=== PATIENT | female | born 1960 | race Caucasian/White ===

== ENCOUNTER 2022-04-04 00:14 | Day surgery (SDC) | payer MEDICARE, SELFPAY ==
[2022-03-28 10:58] VITALS: BMI 28.1
--- NOTE | 2022-03-28 11:10 | PC.NURSE ---
Report to the Outpatient Waiting Room, entrance under the green pavilion located off [facility], at time 0600 on date 04/04/22. OR Time: 0730. - You and your visitor will be asked a series of questions to screen for COVID 19 for your protection. - Only one visitor is allowed at this time. - The patient visitor is requested to leave or wait in car when not with patient. - A mask is required within the hospital. Patients may have clear liquids (water, carbonated beverages, clear teas, apple juice) until 3 hours prior to surgery with a maximum of 20 ounces. - No food from midnight until time of surgery Take the following medications with a SIP of water the morning of surgery: GABAPENTIN, DULOXETINE Medications to discontinue per physician: VITAMINS/SUPPLEMENTS Date to take last dose: 03/31/22 PT HAS ALREADY STOPPED ASPIRIN Please no make-up, nail moldovan, hairspray, perfume, deodorant, or body powder the day of surgery. No jewelry (including any body piercings) or valuables the day of surgery, leave them at home. Please take a shower or bath the night before, or the morning of, surgery with an antibacterial soap. Wear comfortable, loose fitting clothing. - Jewelry must be removed prior to entering the operating room. Rings and piercings that are not removed may be cut off. - The hospital will not accept responsibility for valuables. - Please leave all valuables, including medications, at home the day of surgery. If you are going home after surgery, a licensed newspaper delivery driver must drive you home. - NO public transportation without another adult. - We recommend that an adult stay with you for 24 hours following discharge. - We also recommend that you do not drive, make important decision, drink alcoholic beverages, or take any drugs that were not prescribed by your health care provider for at least 24 hours after your discharge time. Follow any additional instructions given to you from your surgeon. If you or anyone in your household have experienced Covid symptoms in the past week, please notify your surgeon or the nurse liaison at the phone number below for possible testing. Telephone instructions given to PT - LENNY MARISOL and asked if any additional questions and then verbalized understanding. Patient advised to call surgeon office or pre surgery nurse liaison [phone] if any additional questions.
--- NOTE | 2022-04-03 15:05 | P.PNAN_ITS ---
Anes - Initial Pre Proc Eval Procedure: Operation Date: 04/04/22 07:30 Proposed Procedures p Right T10- 11 Thoracic Foraminotomy - Tu Steward MD Date/Time: 04/03/22 15:05 Surgeon: Tu Steward MD Pre Op Diagnosis: Thoracic Neuroforaminal Stenosis Patient Data Age: 61 Gender: F Height: 1.73 m Weight: 83.91 kg Allergies Allergy/AdvReac Type Severity Reaction Status Date / Time codeine Allergy Hallucinati Verified 03/28/22 10:53 ng prednisone Allergy Insomnia Verified 03/28/22 10:53 baclofen AdvReac Gastrointestinal Verified 03/28/22 10:53 Upset Home Medications Medication Instructions Recorded Confirmed Type acetaminophen 500 mg tablet 1,000 mg PO TID 03/28/22 03/28/22 History (Tylenol Extra Strength) aspirin 81 mg chewable tablet 81 mg PO HS 03/28/22 03/28/22 History duloxetine 30 mg capsule,delayed 1 cap PO TID 03/28/22 03/28/22 History release gabapentin 300 mg capsule 2 cap PO BID 03/28/22 03/28/22 History gabapentin 400 mg capsule 2 cap PO HS 03/28/22 03/28/22 History lisinopril 20 0.5 tablet PO DAILY 03/28/22 03/28/22 History mg-hydrochlorothiazide 12.5 mg tablet montelukast 10 mg tablet 1 tablet PO DAILY 03/28/22 03/28/22 History omeprazole 20 mg capsule,delayed 1 cap PO DAILY 03/28/22 03/28/22 History release vitamin B complex 1 tablet PO DAILY 03/28/22 03/28/22 History vitamin E 268 mg (400 unit) capsule 268 mg PO DAILY 03/28/22 03/28/22 History Patient hx anesthesia problems: none Family hx anesthesia problems: none Results Review: All pre-operative results and documents have been reviewed as part of the pre- operative evaluation. [facility] Past Medical History Medical History (Updated 04/03/22 @ 15:06 by David Cali MD) Back pain HTN (hypertension) KLEBER on CPAP Osteoarthritis Social History Social History Smoking status: Never smoker Alcohol intake: never Substance use: never Substance use type: does not use Living arrangements: with family Spiritual care concerns: No Anes - Eval Final PreProcedure Day of Procedure 04/03/22 15:05 Patient weight: overweight Heart: regular rate and rhythm Lungs: clear to auscultation and normal air movement Airway: Mallampati scale class II Neurological: alert and oriented Last oral intake: >/= 8 hours ASA classification: III Emergent: no Anesthetic plan: proceed Anesthesia type and monitoring: general ETT Results Review: All pre-operative results and documents have been reviewed as part of the pre- operative evaluation. Informed Consent: The patient's anesthetic plan and its attendant risks and benefits were discussed with the patient/family/POA. Questions were solicited and answers provided to the satisfaction of the patient/family/POA.
[2022-04-04] VITALS (20 sets, daily range): BP systolic 115–151; BP diastolic 54–86; PULSE 63–82; RESP 12–18; TEMP 36.2–36.8; O2SAT 93–100
--- NOTE | ~2022-04-04 | XR_ITS ---
EXAMINATION: XR fluoroscopy no charge DATE: 04/04/2022 09:00 INDICATION: Thoracic foraminotomy TECHNIQUE: 2 frontal fluoroscopic images of the lower thoracic spine were obtained during procedure p erformed by Dr. Steward. Radiologist was not present for the imaging or procedure. The amount of flu oroscopy time used during this procedure was 0.2 minutes. COMPARISON: None. FINDINGS: Images demonstrate a surgical wound project over the lower thoracic spine. Spinal stimulator leads ar e seen projecting over the central canal with distal tips at the level of the mid T9 vertebral body. IMPRESSION: 1. Fluoroscopy utilized during pain management procedure at the lower thoracic spine. See procedure n ote for further detail. Reviewed, dictated and finalized at location A. IMPRESSION: 1. Fluoroscopy utilized during pain management procedure at the lower thoracic spine. See procedure note for further detail.
[2022-04-04] MEDS: LACTATED RINGERS 1,000 ML 30 ML IV CONT ×2 (06:30→09:11)
--- NOTE | 2022-04-04 07:39 | PM.IMHP ---
H&P: HPI History of Present Illness Date/Time: 04/04/22 07:39 Chief Complaint: Back and flank pain, myelopathy Narrative: Elodia is a 61-year-old female with back and flank pain related foraminal stenosis at T10-11 who presents for decompression from a posterior approach. Her spinal canal also be decompressed. She is not changed since we last saw her. She is not having new bowel or bladder difficulty. She does not have specific muscle weakness. She is not having dermatomal numbness. Review of Systems Review of Systems: Patient denies shortness of breath, cough, fever, chills, nausea, vomiting, weight loss, weight gain, urinary or bowel disturbance, chest pain. She has back and flank pain as above. She is otherwise negative on 12 systems. [facility] Past Medical History Medical History Back pain HTN (hypertension) KLEBER on CPAP Osteoarthritis Social History Social History Smoking status: Never smoker Alcohol intake: never Substance use: never Substance use type: does not use Living arrangements: with family Spiritual care concerns: No Meds Home Medications and Allergies Home Medications Medication Instructions Recorded Confirmed Type acetaminophen 500 mg tablet 1,000 mg PO TID 03/28/22 03/28/22 History (Tylenol Extra Strength) aspirin 81 mg chewable tablet 81 mg PO HS 03/28/22 03/28/22 History duloxetine 30 mg capsule,delayed 1 cap PO TID 03/28/22 04/04/22 History release gabapentin 300 mg capsule 2 cap PO BID 03/28/22 04/04/22 History gabapentin 400 mg capsule 2 cap PO HS 03/28/22 03/28/22 History lisinopril 20 0.5 tablet PO DAILY 03/28/22 03/28/22 History mg-hydrochlorothiazide 12.5 mg tablet montelukast 10 mg tablet 1 tablet PO DAILY 03/28/22 03/28/22 History omeprazole 20 mg capsule,delayed 1 cap PO DAILY 03/28/22 03/28/22 History release vitamin B complex 1 tablet PO DAILY 03/28/22 03/28/22 History vitamin E 268 mg (400 unit) capsule 268 mg PO DAILY 03/28/22 03/28/22 History Allergies Allergy/AdvReac Type Severity Reaction Status Date / Time baclofen AdvReac Gastrointestinal Verified 04/04/22 07:27 Upset codeine AdvReac Hallucinati Verified 04/04/22 07:27 ng prednisone AdvReac Insomnia Verified 04/04/22 07:27 Vital Signs Vital Signs - 24 hr 04/04/22 07:00 Temperature 97.7 F Pulse Rate 75 Respiratory Rate 16 Blood Pressure 151/75 H Pulse Oximetry 98 Oxygen Delivery Room Air Exam Neuro: Other: The patient is a normally developed is a normal-appearing female supine in hospital bed in no acute distress. She is awake, alert, oriented x3 with good fund of knowledge, recall of events and fluent speech. Her face is symmetrical, her tongue is midline, her pupils are equal and reactive to light, her extraocular movements are intact. She has no upper extremity drift, dysmetria or dyspraxia. Strength is normal in the bilateral upper and lower extremities to direct confrontation. Sensation is intact to light touch throughout the upper extremities. Assessment and Plan Assessment and plan (1) Foraminal stenosis of thoracic region: Code(s): M48.04 - Spinal stenosis, thoracic region Status: Acute (2) Thoracic spinal stenosis: Code(s): M48.04 - Spinal stenosis, thoracic region Status: Acute Plan Elodia is a 61-year-old female who presents for T10-11 laminectomy and foraminotomy. I described to her again that operation, its risks, potential benefits, the operative and postoperative course in detail and answered all her questions personally. She indicates understanding and elects to proceed with the operation.
--- NOTE | 2022-04-04 07:43 | WPDHPUPDATE1 ---
History and Physical Update Update Date/Time: 04/04/22 07:43 History and Physical has been reviewed, including an updated exam of the patient. There are NO changes in the patient's condition. Risks, benefits, and alternatives have been discussed and questions answered. Patient agrees to proceed with procedure.
[2022-04-04] MEDS: ceFAZolin 2 GM/D5W 50 ML 2 GM/50 ML BAG IVPB (07:48)
[2022-04-04] MEDS: LIDO 1%/EPINEPHRINE/PF 1:200,000 30 ML VIAL 50 ML XX (08:21)
--- NOTE | 2022-04-04 09:02 | W.PM.PROC2 ---
Procedure Note - Detailed Date of Procedure 04/04/22 Pre-op Diagnosis Thoracic Neuroforaminal Stenosis Post-op Diagnosis Same Procedure Performed Right T10-11 foraminotomy Surgeon Tu Steward MD Systems Analyst Developer [employer] Anesthesia General Indications Elodia is a 61-year-old female with right flank pain related to stenosis in the foramen at T10-11 who presents Findings Foraminal stenosis on the right at T10-11 Description of Procedure The patient was brought to the operating room in the supine position, was sedated, intubated and placed under general anesthesia in routine fashion. She was then turned into the prone position on a Navarro frame. The area of operation on her back was examined, marked for incision, prepped and draped in routine sterile fashion. A preoperative AP x-ray was obtained to determine the 6 placement of the incision. The incision was based on the T10 pedicles. This area was injected with 0.5% lidocaine with [id number] epinephrine. Intravenous antibiotics were given prior to incision. Incision was made with a 10 blade scalpel down to the thoracic fascia. A subperiosteal dissection of the muscle soft tissue weight and spinous process and lamina on the left at T10-11 was performed with a subperiosteal elevator and Bovie cautery. A verifying x-rays obtained to verify the level of operation. The T10 kacy lamina was removed using a Midas Aquilino drill. The yellow ligament was written lifted and removed piecemeal using Kerrison punches. The T10 pedicle was identified. A Midas Aquilino drill was used to perform a limited bony foraminotomy. The foraminotomy was completed using Kerrison punches and curved curette. The exiting nerve root was identified. Significant compression was noted on the nerve and was relieved by these means. These maneuvers were performed until a nerve hook could be placed out the foramen to confirm lack of compression. The wound was then copiously irrigated with bacitracin irrigation all bleeding stopped with bipolar cautery and Surgiflo. The wound was then closed in layered fashion with 2-0 Vicryl interrupted sutures in the thoracic fascia and Kelton's layer. 3-0 Vicryl buried interrupted sutures were placed in the dermis and the skin was closed with running 4 Monocryl subcuticular stitch and dressed with benzoin, Steri-Strips and a Telfa and Tegaderm dressing. The patient was allowed to wake up in the operating room and was taken to the recovery room in stable condition. There were no immediate complications of this operation. All counts were reported correct at the end of the case. Blood loss was 10 cc. The patient is neurologically at her baseline postoperatively. Implants None Estimated Blood Loss 10 IV Fluids 1,000 Drains No Complications None Disposition PACU
--- NOTE | 2022-04-04 10:08 | SUR.PHASEI ---
pt meets criteria for discharge to floor but at this time a bed is unavailable and pt will remain on hold in PACU.
[2022-04-04] MEDS: fentaNYL CITRATE INJ (*CRX) 100 MCG/2 ML VIAL 25 MCG IV PUSH (10:20)
[2022-04-04] MEDS: oxyCODONE HCL (*CRX) 5 MG TAB IR PO (12:08)
--- NOTE | 2022-04-04 12:54 | ADMGEN ---
This patient, Elodia Monte, was admitted to 2 Medical Room 251-. Patient/family oriented to hospital policies and general routines including ID bracelet, bed and alarms, visiting hours, pain management, procedures, bathroom and other care routines, personal items, smoking policy, room service/diet, and visiting hours. Information on how to activate the Rapid Response Team has been discussed. Patient/Family are encouraged to report perceived risks to care and to ask questions if they do not understand what they are told or what they should do.
[2022-04-04] MEDS: CYCLOBENZAPRINE HCL 10 MG TABLET PO (12:57)
[2022-04-04] MEDS: HYDROcodone/acetaminophen (*CRX) 10-325 MG TABLET 1 TAB PO ×3 (13:15→20:27)
[2022-04-04] MEDS: ACETAMINOPHEN 500 MG TABLET 1000 MG PO (16:56)
[2022-04-04] MEDS: DULoxetine HCL 30 MG CAPSULE.DR PO (16:56)
[2022-04-04] MEDS: GABAPENTIN 300 MG CAPSULE 600 MG PO (17:49)
[2022-04-04] MEDS: GABAPENTIN 400 MG CAPSULE 800 MG PO (20:24)
[2022-04-04] MEDS: DOCUSATE SODIUM 100 MG CAPSULE PO (20:24)
[2022-04-05] VITALS: BP 136/65; PULSE 73; RESP 20; TEMP 36.8; O2SAT 93
[2022-04-05 02:25] VITALS: PULSE 69; O2SAT 95
[2022-04-05 04:00] VITALS: BP 111/54; PULSE 72; RESP 20; TEMP 36.6; O2SAT 94
[2022-04-05] MEDS: hydroCHLOROthiazide 6.25 MG TABLET PO (08:01)
[2022-04-05] MEDS: MONTELUKAST SODIUM 10 MG TABLET PO (08:01)
[2022-04-05] MEDS: GABAPENTIN 300 MG CAPSULE 600 MG PO ×2 (08:01→17:09)
[2022-04-05] MEDS: PANTOPRAZOLE 40 MG TABLET PO (08:01)
[2022-04-05] MEDS: DULoxetine HCL 30 MG CAPSULE.DR PO ×3 (08:01→17:09)
[2022-04-05] MEDS: DOCUSATE SODIUM 100 MG CAPSULE PO (08:01)
[2022-04-05] MEDS: lisinopriL 10 MG TABLET PO (08:01)
[2022-04-05] MEDS: VITAMIN B COMPLEX CAPSULE 1 CAP PO (08:02)
[2022-04-05] MEDS: VITAMIN E 400 UNIT CAPSULE PO (08:02)
[2022-04-05] MEDS: HYDROcodone/acetaminophen (*CRX) 10-325 MG TABLET 1 TAB PO (08:02)
[2022-04-05 10:15] VITALS: BP 129/57; PULSE 74; RESP 18; TEMP 36.6; O2SAT 99
--- NOTE | 2022-04-05 11:37 | WPDANESPN ---
Anes - Prog Note Post-Op Date/Time: 04/05/22 11:37 Vital Signs: Last Vital Signs Temp 36.6 C 04/05/22 10:15 Pulse 74 04/05/22 10:15 Resp 18 04/05/22 10:15 BP 129/57 L 04/05/22 10:15 Pulse Ox 99 04/05/22 10:15 O2 Del Method Room Air 04/05/22 08:05 O2 Flow Rate 2 04/04/22 11:30 Pain Score (VAS): 0 I/O: Intake & Output 04/04/22 04/05/22 04/05/22 23:59 07:59 15:59 Intake Total 790 550 772 Output Total 972 193 9434 Balance 77 -91 -405 Patient Feedback: Patient satisfied with anesthetic care.
[2022-04-05] MEDS: CYCLOBENZAPRINE HCL 10 MG TABLET PO (12:06)
[2022-04-05] MEDS: ACETAMINOPHEN 500 MG TABLET 1000 MG PO ×2 (12:06→17:09)
[2022-04-05 15:05] VITALS: BP 135/63; PULSE 69; RESP 18; TEMP 36.9; O2SAT 99
--- NOTE | 2022-04-05 17:02 | WPDPN ---
Progress Note: A&P Assessment and Plan (1) Thoracic spinal stenosis: Code(s): M48.04 - Spinal stenosis, thoracic region Status: Acute Assessment and Plan: The patient is doing well postoperative day 1. She will be discharged home this evening. We discussed discharge instructions and discharge medications. She will follow up with Dr. cruz in approximately 4-6 weeks. She will have Keldron to take on an as-needed basis. Subjective Date/time seen: 04/05/22 17:02 Interval history: The patient is doing well postop day 1 from her thoracic foraminotomy. She has some incisional pain. She is unable to tell me whether her back and legs feel better now than before surgery. She has been ambulating, voiding, and tolerating a regular diet. She would like to be discharged home. Exam Narrative: Her bandage is clean and dry. She has good strength and sensation in her lower extremities. Objective Data Vital Signs Vital Signs: Vital Signs - 24 hr 04/04/22 20:03 04/04/22 23:39 04/05/22 00:00 Temperature 98 F 98.2 F Pulse Rate 67 71 73 Respiratory Rate 14 20 Blood Pressure 116/59 L 136/65 Pulse Oximetry 93 94 93 Oxygen Delivery CPAP 04/04/22 20:00 04/05/22 02:25 04/05/22 04:00 Temperature 98 F Pulse Rate 69 72 Respiratory Rate 20 Blood Pressure 111/54 L Pulse Oximetry 95 94 Oxygen Delivery Room Air CPAP 04/05/22 10:15 04/05/22 08:05 04/05/22 15:05 Temperature 97.8 F 98.4 F Pulse Rate 74 69 Respiratory Rate 18 18 Blood Pressure 129/57 L 135/63 Pulse Oximetry 99 99 Oxygen Delivery Room Air Intake/Output Intake/Output: Intake & Output 04/02/22 04/03/22 04/04/22 04/05/22 23:59 23:59 23:59 23:59 Intake Total 2690 1562 Output Total 1200 1600 Balance 1490 -38 Meds/Results Medications: Active Medications Generic Name Dose Route Start Last Admin Trade Name Freq PRN Reason Stop Dose Admin Acetaminophen 1,000 mg 04/04/22 17:00 04/05/22 12:06 Acetaminophen 500 Mg Tablet PO 1,000 mg TID SANDI Administration Hydrocodone Bitart/Acetaminophen 1 tab 04/04/22 12:22 Hydrocodone/Acetaminophen (*Crx) 5-325 Mg Tablet PO Q4H PRN Mild Pain (1-3) Hydrocodone Bitart/Acetaminophen 1 tab 04/04/22 12:22 04/05/22 08:02 Hydrocodone/Acetaminophen (*Crx) 10-325 Mg Tablet PO 1 tab Q4H PRN Administration Moderate Pain (4-6) Al Hydrox/Mg Hydrox/Simethicone 20 ml 04/04/22 12:22 Mag Hydrox/Al Hydrox/Simeth 30 Ml Udc PO Q4H PRN Indigestion/Heartburn Bisacodyl 10 mg 04/04/22 12:22 Bisacodyl 10 Mg Suppository RECTAL DAILY PRN Constipation Cyclobenzaprine HCl 10 mg 04/04/22 12:22 04/05/22 12:06 Cyclobenzaprine Hcl 10 Mg Tablet PO 10 mg TID PRN Administration Muscle Spasms Docusate Sodium 100 mg 04/04/22 21:00 04/05/22 08:01 Docusate Sodium 100 Mg Capsule PO 100 mg Q12HR SANDI Administration Duloxetine HCl 30 mg 04/04/22 17:00 04/05/22 12:06 Duloxetine Hcl 30 Mg Capsule.Dr PO 30 mg TID SANDI Administration Gabapentin 600 mg 04/04/22 17:00 04/05/22 08:01 Gabapentin 300 Mg Capsule PO 600 mg BID SANDI Administration Gabapentin 800 mg 04/04/22 21:00 04/04/22 20:24 Gabapentin 400 Mg Capsule PO 800 mg HS SANDI Administration Hydrochlorothiazide 6.25 mg 04/05/22 09:00 04/05/22 08:01 Hydrochlorothiazide 6.25 Mg Tablet PO 6.25 mg QAM SANDI Administration Lisinopril 10 mg 04/05/22 09:00 04/05/22 08:01 Lisinopril 10 Mg Tablet PO 10 mg QAM SANDI Administration Montelukast Sodium 10 mg 04/05/22 09:00 04/05/22 08:01 Montelukast Sodium 10 Mg Tablet PO 10 mg DAILY SANDI Administration Morphine Sulfate 2 mg 04/04/22 12:22 Morphine Sulfate (*Crx) 2 Mg/Ml Inj IV PUSH Q2H PRN Pain Rated 7-10 Ondansetron HCl 4 mg 04/04/22 12:22 Ondansetron Inj 4 Mg/2 Ml Vial IV PUSH Q8H PRN Nausea And Vomiting Pantopra
== END 2022-04-05 18:11 | disposition home or self-care (01) ==
LOC: ANHSURGERY 09:15 → ANH2MED 12:44
PROVIDERS: Visit Provider Neurological Surgery
PROC: (CPT 63005; principal; 2022-04-04 07:30)
DX: M48.04 Spinal stenosis, thoracic region (principal); I10 Essential (primary) hypertension; G47.33 Obstructive sleep apnea (adult) (pediatric); M19.90 Unspecified osteoarthritis, unspecified site; Z79.82 Long term (current) use of aspirin
CPT/HCPCS: 63046; 36415; 86850; 86900; 86901; 99199; A9270; J0690; J1100; J1170; J2250; J2405; J2704; J3010; J7120

== ENCOUNTER 2022-08-17 00:54 | Day surgery (SDC) | payer MEDICARE, SELFPAY ==
[2022-08-04 10:00] VITALS: BMI 28.5
--- NOTE | 2022-08-04 10:01 | PC.NURSE ---
Addendum entered by Shannan Garcia RN 08/16/22 14:02: PT TO ARRIVE AT 0900 ON 08/17 FOR SURGERY AT 1100. Original Note: Report to the Outpatient Waiting Room, entrance under the green pavilion located off [facility], at time 0600 on date 08/08/22. Planned Procedure Time: 0730. Time changes happen often and if your time is changed the preop area will call you the afternoon before. - You and your visitor will be asked to self-screen and do not enter if you have any COVID symptoms. - Only one visitor is requested with a max of two and NO children visitors are allowed at this time. - The patient visitor may be requested to leave or wait in car when not with patient due to distancing restrictions. - A mask is optional within the hospital. Patients may have clear liquids (water, carbonated beverages, clear teas, apple juice) until 3 hours prior to surgery with a maximum of 20 ounces. - No food from midnight until time of surgery Take the following medications with a SIP of water the morning of surgery: TYLENOL, DULOXETINE, GABAPENTIN Medications to discontinue per physician: ASPIRIN, VITAMINS Date to take last dose: PT STOPPED ON 07/28 Please no make-up, nail nepali, hairspray, perfume, deodorant, or body powder the day of surgery. No jewelry (including any body piercings) or valuables the day of surgery, leave them at home. Please take a shower or bath the night before, or the morning of, surgery with an antibacterial soap. Wear comfortable, loose fitting clothing. - Jewelry must be removed prior to entering the operating room. Rings and piercings that are not removed may be cut off. - The hospital will not accept responsibility for valuables. - Please leave all valuables, including medications, at home the day of surgery. If you are going home after surgery, a licensed laundry route driver must drive you home. - NO public transportation without another adult if you receive anesthesia. - We recommend that an adult stay with you for 24 hours following discharge. - We also recommend that you do not drive, make important decision, drink alcoholic beverages, or take any drugs that were not prescribed by your health care provider for at least 24 hours after your discharge time. Follow any additional instructions given to you from your surgeon. If you or anyone in your household have experienced Covid symptoms in the past week, please notify your surgeon or the nurse liaison at the phone number below for possible testing. Telephone instructions given to PT - LENNY DAMON and asked if any additional questions and then verbalized understanding. Patient advised to call surgeon office or pre surgery nurse liaison [phone] if any additional questions.
--- NOTE | 2022-08-07 12:55 | WPDANESEPPF ---
Anes - Initial Pre Proc Eval Procedure: Operation Date: 08/08/22 07:30 Proposed Procedures p Re-do Right T10-11, First Time T9-10 Foraminotomy Possible T10-11 Posterolateral Instrumented Fusion, - Tu Steward MD s Dorsal Column Stimulator Generator Revision - Tu Steward MD Date/Time: 08/07/22 12:55 Surgeon: Tu Steward MD Pre Op Diagnosis: persistent t9-10 radiculopathy, low back pain Patient Data Age: 61 Gender: F Height: 1.73 m Weight: 85 kg Allergies Allergy/AdvReac Type Severity Reaction Status Date / Time baclofen AdvReac Gastrointestinal Verified 08/04/22 09:57 Upset codeine AdvReac Hallucinati Verified 08/04/22 09:57 ng prednisone AdvReac Insomnia Verified 08/04/22 09:57 Home Medications Medication Instructions Recorded Confirmed Type acetaminophen 500 mg tablet 1,000 mg PO TID 03/28/22 08/04/22 History (Tylenol Extra Strength) aspirin 81 mg chewable tablet 81 mg PO HS 03/28/22 08/04/22 History duloxetine 30 mg capsule,delayed 1 cap PO TID 03/28/22 08/04/22 History release gabapentin 300 mg capsule 2 cap PO BID 03/28/22 08/04/22 History gabapentin 400 mg capsule 1 cap PO HS 03/28/22 08/04/22 History lisinopril 20 1 tablet PO HS 03/28/22 08/04/22 History mg-hydrochlorothiazide 12.5 mg tablet montelukast 10 mg tablet 1 tablet PO DAILY 03/28/22 08/04/22 History omeprazole 20 mg capsule,delayed 1 cap PO DAILY 03/28/22 08/04/22 History release vitamin B complex 1 tablet PO DAILY 03/28/22 08/04/22 History vitamin E 268 mg (400 unit) capsule 268 mg PO DAILY 03/28/22 08/04/22 History gabapentin 400 mg capsule 400 mg PO BID 08/04/22 08/04/22 History multivitamin 1 tablet PO DAILY 08/04/22 08/04/22 History Results Review: All pre-operative results and documents have been reviewed as part of the pre-operative evaluation. [facility] Past Medical History Medical History (Updated 08/07/22 @ 12:56 by David Cali MD) Back pain HTN (hypertension) KLEBER on CPAP Osteoarthritis Overweight (BMI 25.0-29.9) Social History Social History Smoking status: Never smoker Alcohol intake: never Substance use: never Substance use type: does not use Living arrangements: with family Spiritual care concerns: No Anes - Eval Final PreProcedure Day of Procedure 08/07/22 12:55 Patient weight: overweight Heart: regular rate and rhythm Lungs: clear to auscultation and normal air movement Airway: Mallampati scale class II Neurological: alert and oriented Last oral intake: >/= 8 hours ASA classification: III Emergent: no Anesthetic plan: proceed Anesthesia type and monitoring: general ETT Results Review: All pre-operative results and documents have been reviewed as part of the pre-operative evaluation. Informed Consent: The patient's anesthetic plan and its attendant risks and benefits were discussed with the patient/family/POA. Questions were solicited and answers provided to the satisfaction of the patient/family/POA.
--- NOTE | 2022-08-16 14:02 | PC.NURSE ---
Pt recently in ER with stomach cramping - ulcer was ruled out. Pt states she is feeling much better. Medications updated. No other changes in medical history since initial interview. New pre-op instructions reviewed with pt. Pt denies further questions at this time.
[2022-08-17] VITALS (16 sets, daily range): BP systolic 102–135; BP diastolic 51–86; PULSE 71–98; RESP 10–20; TEMP 36.2–36.8; O2SAT 93–100
--- NOTE | ~2022-08-17 | XR_ITS ---
XR fluoroscopy no charge Clinical information: Foraminotomy procedure. TECHNIQUE: Fluoroscopy used during foraminotomy procedure. performed by [Tu Steward MD] on 08/17/2022. 3 seconds with 3 images captured. ] FINDINGS: Correlate with procedure note. IMPRESSION: Fluoroscopy used during foraminotomy procedure. Refer to procedural report for details. Reviewed, dictated and finalized at location A. TEACHER
[2022-08-17 10:09] LABS: Potassium 3.9 mmol/L (3.4-5.0)
[2022-08-17] MEDS: LACTATED RINGERS 1,000 ML 30 ML IV CONT ×3 (10:09→16:49)
[2022-08-17 10:13] LABS: Anion Gap 8 mmol/L (8-16); Blood Urea Nitrogen 12 mg/dL (7-17); Calcium 8.9 mg/dL (8.4-10.2); Carbon Dioxide 27 mmol/L (22-30); Chloride 99 mmol/L (98-107); Estimated CRCL calculation 94 ml/min; Estimated Glomerular Filt Rate > 60; Glucose 93 mg/dL (65-110); Sodium 134 mmol/L (137-145)
--- NOTE | 2022-08-17 10:41 | WPDANESEPPF ---
Anes - Initial Pre Proc Eval Procedure: Operation Date: 08/17/22 11:00 Proposed Procedures p Re-do Right T10-11, First Time T9-10 Foraminotomy Possible T10-11 Posterolateral Instrumented Fusion, - Tu Setward MD s Dorsal Column Stimulator Generator Revision - Tu Steward MD Date/Time: 08/17/22 10:41 Surgeon: Tu Steward MD Pre Op Diagnosis: persistent t9-10 radiculopathy, low back pain Patient Data Age: 61 Gender: F Height: 1.73 m Weight: 86.65 kg Last Vital Signs Temp 36.3 C L 08/17/22 10:01 Pulse 76 08/17/22 10:01 Resp 14 08/17/22 10:01 BP 135/68 08/17/22 10:01 Pulse Ox 98 08/17/22 10:01 O2 Del Method Room Air 08/17/22 10:01 Allergies Allergy/AdvReac Type Severity Reaction Status Date / Time baclofen AdvReac Gastrointestinal Verified 08/17/22 10:10 Upset codeine AdvReac Hallucinati Verified 08/17/22 10:10 ng prednisone AdvReac Insomnia Verified 08/17/22 10:10 Home Medications Medication Instructions Recorded Confirmed Type acetaminophen 500 mg tablet 1,000 mg PO TID 03/28/22 08/17/22 History (Tylenol Extra Strength) aspirin 81 mg chewable tablet 81 mg PO HS 03/28/22 08/16/22 History duloxetine 30 mg capsule,delayed 1 cap PO TID 03/28/22 08/17/22 History release gabapentin 300 mg capsule 2 cap PO BID 03/28/22 08/17/22 History gabapentin 400 mg capsule 1 cap PO HS 03/28/22 08/16/22 History lisinopril 20 1 tablet PO HS 03/28/22 08/16/22 History mg-hydrochlorothiazide 12.5 mg tablet montelukast 10 mg tablet 1 tablet PO DAILY 03/28/22 08/16/22 History omeprazole 20 mg capsule,delayed 1 cap PO DAILY 03/28/22 08/16/22 History release vitamin B complex 1 tablet PO DAILY 03/28/22 08/16/22 History vitamin E 268 mg (400 unit) capsule 268 mg PO DAILY 03/28/22 08/16/22 History gabapentin 400 mg capsule 400 mg PO BID 08/04/22 08/17/22 History multivitamin 1 tablet PO DAILY 08/04/22 08/16/22 History dicyclomine 10 mg capsule 10 mg PO TID PRN Gastrointestinal 08/16/22 08/16/22 History Spasms Or Cramping ondansetron HCl 4 mg tablet 4 mg PO Q6H PRN Nausea 08/16/22 08/16/22 History Laboratory Tests 08/17/22 09:49 Sodium 134 mmol/L L mmol/L (137-145) Potassium 3.9 mmol/L mmol/L (3.4-5.0) Chloride 99 mmol/L mmol/L (98-107) Carbon Dioxide 27 mmol/L mmol/L (22-30) Anion Gap 8 mmol/L mmol/L (8-16) BUN 12 mg/dL mg/dL (7-17) Creatinine 0.60 mg/dL L mg/dL (0.7-1.0) Estim Creat Clear Calc 94 ml/min ml/min Estimated GFR > 60 (59 - ) Glucose 93 mg/dL mg/dL (65-110) Calcium 8.9 mg/dL mg/dL (8.4-10.2) Patient hx anesthesia problems: none Family hx anesthesia problems: none Results Review: All pre-operative results and documents have been reviewed as part of the pre-operative evaluation. [facility] Past Medical History Medical History Back pain HTN (hypertension) KLEBER on CPAP Osteoarthritis Overweight (BMI 25.0-29.9) Social History Social History Smoking status: Never smoker Alcohol intake: never Substance use: never Substance use type: does not use Living arrangements: with family Spiritual care concerns: No Anes - Eval Final PreProcedure Day of Procedure 08/17/22 10:41 Patient weight: overweight Heart: regular rate and rhythm Lungs: clear to auscultation Airway: Mallampati scale class II Neurological: alert and oriented Last oral intake: >/= 8 hours ASA classification: III Emergent: no Anesthetic plan: proceed Anesthesia type and monitoring: general ETT and standard monitoring Results Review: All pre-operative results and documents have been reviewed as part of the pre-operative evaluation. Informed Consent: The patient's anesthetic plan and its attendant risks and benefits were discussed with the patient/family/POA. Questions were solici
[2022-08-17] MEDS: fentaNYL CITRATE INJ (*CRX) 100 MCG/2 ML VIAL 50 MCG IV PUSH (10:52)
--- NOTE | 2022-08-17 10:53 | SUR.PREOP ---
pt showed up early, 829, pt stated office told her to. Rep fitted her for brace.
--- NOTE | 2022-08-17 12:11 | PM.IMHP ---
H&P: HPI History of Present Illness Date/Time: 08/17/22 12:11 Chief Complaint: Right flank pain Narrative: Elodia is a 61-year-old female who has a dorsal column stimulator in place for back and lower extremity discomfort that is working well for her. She has pain in her right flank that radiates around to her side that may be related to the T9 or T10 nerve root. She previously underwent a decompression at T10 but without permanent benefit. She is here for decompression and fusion at T9-T10 and T10-11 as well as moving her generator to the other side. She is not having new symptoms since we last saw her. She does not have specific dermatomal numbness or muscle group weakness. She is not having bowel or bladder difficulty. Review of Systems Review of Systems: Patient denies shortness of breath, cough, fever, chills, nausea, vomiting, weight loss, weight gain, chest pain, dysuria. She has back and flank pain as above. Review of systems otherwise negative except as noted elsewhere. [facility] Past Medical History Medical History Back pain HTN (hypertension) KLEBER on CPAP Osteoarthritis Overweight (BMI 25.0-29.9) Social History Social History Smoking status: Never smoker Alcohol intake: never Substance use: never Substance use type: does not use Living arrangements: with family Spiritual care concerns: No Meds Home Medications and Allergies Home Medications Medication Instructions Recorded Confirmed Type acetaminophen 500 mg tablet 1,000 mg PO TID 03/28/22 08/17/22 History (Tylenol Extra Strength) aspirin 81 mg chewable tablet 81 mg PO HS 03/28/22 08/16/22 History duloxetine 30 mg capsule,delayed 1 cap PO TID 03/28/22 08/17/22 History release gabapentin 300 mg capsule 2 cap PO BID 03/28/22 08/17/22 History gabapentin 400 mg capsule 1 cap PO HS 03/28/22 08/16/22 History lisinopril 20 1 tablet PO HS 03/28/22 08/16/22 History mg-hydrochlorothiazide 12.5 mg tablet montelukast 10 mg tablet 1 tablet PO DAILY 03/28/22 08/16/22 History omeprazole 20 mg capsule,delayed 1 cap PO DAILY 03/28/22 08/16/22 History release vitamin B complex 1 tablet PO DAILY 03/28/22 08/16/22 History vitamin E 268 mg (400 unit) capsule 268 mg PO DAILY 03/28/22 08/16/22 History gabapentin 400 mg capsule 400 mg PO BID 08/04/22 08/17/22 History multivitamin 1 tablet PO DAILY 08/04/22 08/16/22 History dicyclomine 10 mg capsule 10 mg PO TID PRN Gastrointestinal 08/16/22 08/16/22 History Spasms Or Cramping ondansetron HCl 4 mg tablet 4 mg PO Q6H PRN Nausea 08/16/22 08/16/22 History Allergies Allergy/AdvReac Type Severity Reaction Status Date / Time baclofen AdvReac Gastrointestinal Verified 08/17/22 10:10 Upset codeine AdvReac Hallucinati Verified 08/17/22 10:10 ng prednisone AdvReac Insomnia Verified 08/17/22 10:10 Vital Signs Vital Signs - 24 hr 08/17/22 10:01 Temperature 97.4 F L Pulse Rate 76 Respiratory Rate 14 Blood Pressure 135/68 Pulse Oximetry 98 Oxygen Delivery Room Air Exam Narrative: Strength is 5/5 in all muscle groups of the bilateral lower extremities. Sensation is intact light touch in the lower extremities. Respirations are unlabored. Regular rate H&P: Results Labs Labs: [facility] 08/17/22 09:49 Sodium 134 L Potassium 3.9 Chloride 99 Carbon Dioxide 27 BUN 12 Creatinine 0.60 L Glucose 93 Calcium 8.9 Assessment and Plan Assessment and plan (1) Thoracic radiculopathy: Code(s): M54.14 - Radiculopathy, thoracic region Status: Acute Plan Elodia is a 61-year-old female with right flank pain we will treat by way of foraminotomy and lateral mass instrumented fusion at T9-11 as well as moving her generator to the opposite side. I again described to her that operation, its risks, potential benefits, the operative a
--- NOTE | 2022-08-17 12:15 | WPDHPUPDATE1 ---
History and Physical Update Update Date/Time: 08/17/22 12:15 History and Physical has been reviewed, including an updated exam of the patient. There are NO changes in the patient's condition. Risks, benefits, and alternatives have been discussed and questions answered. Patient agrees to proceed with procedure.
[2022-08-17] MEDS: ceFAZolin 2 GM/D5W 50 ML 2 GM/50 ML BAG IVPB (12:20)
[2022-08-17] MEDS: LIDO 1%/EPINEPHRINE/PF 1:200,000 30 ML VIAL INFILTRATE (13:14)
[2022-08-17] MEDS: VANCOMYCIN HCL 1,000 MG VIAL 1000 MG TOPICAL (13:14)
[2022-08-17] MEDS: fentaNYL CITRATE INJ (*CRX) 100 MCG/2 ML VIAL 25 MCG IV PUSH ×8 (16:10→16:58)
--- NOTE | 2022-08-17 18:31 | ADMGEN ---
This patient, Elodia Monte, was admitted to Medical Room 341-01. Patient/family oriented to hospital policies and general routines including ID bracelet, bed and alarms, visiting hours, pain management, procedures, bathroom and other care routines, personal items, smoking policy, room service/diet, and visiting hours. Information on how to activate the Rapid Response Team has been discussed. Patient/Family are encouraged to report perceived risks to care and to ask questions if they do not understand what they are told or what they should do.
[2022-08-17] MEDS: HYDROcodone/acetaminophen (*CRX) 10-325 MG TABLET 1 TAB PO ×2 (18:39→22:41)
[2022-08-17] MEDS: KCL 20 MEQ/D5/0.45% SOD CHL 1,000 ML 100 ML IV CONT (18:39)
[2022-08-17] MEDS: HYDROmorphone HCL INJ (*CRX) 1 MG/ML SYR 0.5 MG IV PUSH (19:54)
[2022-08-17] MEDS: ONDANSETRON INJ 4 MG/2 ML VIAL IV PUSH (19:58)
[2022-08-17] MEDS: DULoxetine HCL 30 MG CAPSULE.DR PO (21:09)
[2022-08-17] MEDS: DOCUSATE SODIUM 100 MG CAPSULE PO (21:11)
[2022-08-17] MEDS: GABAPENTIN 400 MG CAPSULE PO ×2 (21:11)
[2022-08-17] MEDS: hydroCHLOROthiazide 12.5 MG CAPSULE PO (21:12)
[2022-08-17] MEDS: lisinopriL 20 MG TABLET PO (21:12)
[2022-08-17] MEDS: diphenhydrAMINE HCl CAP 25 MG CAPSULE PO (22:05)
[2022-08-17] MEDS: WATER FOR IRRIGATION, STERILE 1,000 ML BOTTLE 1000 ML (22:26)
[2022-08-18] VITALS: BP 109/49; PULSE 77; RESP 18; TEMP 36.1; O2SAT 94
[2022-08-18 04:00] VITALS: BP 118/51; PULSE 71; RESP 16; TEMP 36.8; O2SAT 97
[2022-08-18] MEDS: HYDROcodone/acetaminophen (*CRX) 10-325 MG TABLET 1 TAB PO ×5 (04:10→21:07)
[2022-08-18] MEDS: MONTELUKAST SODIUM 10 MG TABLET PO (08:21)
[2022-08-18] MEDS: DOCUSATE SODIUM 100 MG CAPSULE PO ×2 (08:21→21:07)
[2022-08-18] MEDS: DULoxetine HCL 30 MG CAPSULE.DR PO ×3 (08:21→17:24)
[2022-08-18] MEDS: VITAMIN E 400 UNIT CAPSULE PO (08:21)
[2022-08-18] MEDS: GABAPENTIN 400 MG CAPSULE PO ×3 (08:21→21:30)
[2022-08-18] MEDS: VITAMIN B COMPLEX CAPSULE 1 CAP PO (08:21)
[2022-08-18] MEDS: GABAPENTIN 300 MG CAPSULE 600 MG PO ×2 (08:22→17:24)
[2022-08-18] MEDS: PANTOPRAZOLE 40 MG TABLET PO (08:22)
[2022-08-18] MEDS: KCL 20 MEQ/D5/0.45% SOD CHL 1,000 ML 30 ML IV CONT (08:22)
[2022-08-18] MEDS: MULTIVITAMINS THERAPEUTIC TAB (*BKC) 1 TABLET PO (08:22)
--- NOTE | 2022-08-18 11:21 | WPDANESPN ---
Anes - Prog Note Post-Op Date/Time: 08/18/22 11:21 Cardiovascular status: normal Respiratory status: normal Airway patency: baseline Mental status: baseline Post-Op hydration status: normal Vital Signs: Last Vital Signs Temp 36.8 C 08/18/22 04:00 Pulse 71 08/18/22 04:00 Resp 16 08/18/22 04:00 BP 118/51 L 08/18/22 04:00 Pulse Ox 97 08/18/22 04:00 O2 Del Method Room Air 08/17/22 18:05 O2 Flow Rate 6 08/17/22 15:20 Pain Score (VAS): 0 I/O: Intake & Output 08/17/22 08/18/22 08/18/22 23:59 07:59 15:59 Intake Total 700 1400 Output Total 1000 700 Balance 700 400 -700 Laboratory Tests 08/17/22 09:49 Post-procedural complaints: none Patient Feedback: Patient satisfied with anesthetic care.
--- NOTE | 2022-08-18 12:47 | W.PM.PROC2 ---
Procedure Note - Detailed Date of Procedure 08/18/22 Pre-op Diagnosis persistent t9-10 radiculopathy, low back pain Post-op Diagnosis Same Procedure Performed Redo right T10-11 foraminotomy, right T9-10 foraminotomy, posterolateral instrumented fusion T9-11 utilizing pedicle screw instrumentation, local autograft and I factor , revision of dorsal column stimulator generator site to a new site Surgeon Tu Steward MD Custodial Worker trino Anesthesia General Indications Elodia is a 61-year-old female with right-sided back and flank pain who underwent a right T10-11 foraminotomy with only temporary benefit. She presents now for redo foraminotomy at that level, first-time foraminotomy at the level above and fusion to try to produce a durable result. Description of Procedure Elodia was brought to the operating room in the supine position, was sedated, intubated and placed under general anesthesia in routine fashion. She was then turned to the prone position on a Navarro frame. Therefore operation on her back was examined, marked our incision, prepped and draped in routine sterile fashion. Incision was marked over the T9 through 12 spinous processes in the midline. This area was injected with 0.5% lidocaine with [id number] epinephrine. Intravenous antibiotics given prior to incision. Incision was made with a 10 blade scalpel down to the lumbodorsal fascia. A subperiosteal dissection the muscle and soft tissue away from the spinous process and lamina at T9 through 11 was performed on the right with a subperiosteal elevator and Bovie cautery. A verifying x-ray was obtained to verify the level of operation. A Midas Aquilino drill was used to perform a hemilaminectomy and foraminotomy at T10-11 and at T9-10. T9-10 much of the kacy lamina and lateral bone had already been removed. Additional bone was removed. The yellow ligament was lifted and removed piecemeal with Kerrison punches. The nerve root was identified at each level and followed towards the foramen. Scar at the T10-11 level was peeled away from the nerve and removed using Kerrison punches. The bony foraminotomy at T9-10 was carried out until a dental instrument could be placed in the foramen to confirm lack of compression above and below the nerve. At T9, T10 and T11 pedicle screw instrumentation was performed. This was done by observing and palpating the pedicle while a hole was made in the superior to the process above the pedicle using a Midas Aquilino drill. The pedicle was then cannulated with a pedicle probe, checked for continuity with the ball probe, tapped with a 4.5 mm tap and a 5.5 x 40 mm screw was placed into each pedicle. A nathan was placed into the screw heads on either side at secured issues in the capsule that purpose. This was definitively tightened with a torque and anti torque device. Verify x-ray was again obtained to verify good position of the instrumentation which was confirmed. Local autograft bone and I factor was combined and placed against decorticated lateral mass bone. Decortication was performed with the Midas Aquilino drill at T9 through 11. the generator site in the left flank was opened using 20 blade scalpel. sharp dissection was used to come through the soft tissue down to the generator which was removed from pocket with clamp. The wires were disconnected from the generator. The generator was passed off the field and held for later reimplantation. This was done prior to the thoracic spinal part of the operation. After the decompression fusion was performed a separate incision was made in the right flank transversely. This area had been injected with 0.5% lidocaine with [id number] epinephrine. Subcutaneous pocket was created 1 cm deep in the tissue using curved Corcoran scissors and toothed forceps. The wires were pulled through from the left flank incision to the middle incision and then read very to the right flank incision. Here they were inserted into the generator slots
[2022-08-18] MEDS: HYDROmorphone HCL INJ (*CRX) 1 MG/ML SYR 0.5 MG IV PUSH (14:39)
[2022-08-18] MEDS: ONDANSETRON INJ 4 MG/2 ML VIAL IV PUSH (14:39)
--- NOTE | 2022-08-18 16:42 | WPDNEUROSGPN ---
Progress Note: A&P Assessment and Plan (1) Thoracic radiculopathy: Code(s): M54.14 - Radiculopathy, thoracic region Status: Acute Plan Neurologically stable post thoracic decompression and fusion Patient improved neurologically Expect that patient will d/c to home in AM Recommended d/c IV narcotics Subjective Date/time seen: 08/18/22 16:42 Patient did well today with marked improvement in her preoperative symptoms Back pain today with a dose of IV narcotics Exam Narrative: Awake, alert, oriented x 3 Speech CF JAKE EOMI Face= TML MAEW with good strength Objective Data Vital Signs Vital Signs: Vital Signs - 24 hr 08/17/22 16:50 08/17/22 17:05 08/17/22 17:20 Temperature Pulse Rate 86 92 98 Respiratory Rate 16 18 20 Blood Pressure 106/86 112/57 L 108/55 L Pulse Oximetry 95 93 98 Oxygen Delivery Room Air Room Air Room Air 08/17/22 17:35 08/17/22 17:50 08/17/22 18:05 Temperature Pulse Rate 83 87 85 Respiratory Rate 16 18 18 Blood Pressure 110/51 L 113/62 115/69 Pulse Oximetry 97 98 95 Oxygen Delivery Room Air Room Air Room Air 08/17/22 18:46 08/17/22 20:00 08/18/22 00:00 Temperature 97.2 F L 98.2 F 97 F L Pulse Rate 84 90 77 Respiratory Rate 18 16 18 Blood Pressure 106/51 L 117/62 109/49 L Pulse Oximetry 93 95 94 Oxygen Delivery 08/18/22 04:00 08/18/22 12:22 08/18/22 12:33 Temperature 98.3 F Pulse Rate 71 Respiratory Rate 16 Blood Pressure 118/51 L Pulse Oximetry 97 Oxygen Delivery Room Air Room Air Intake/Output Intake/Output: Intake & Output 08/15/22 08/16/22 08/17/22 08/18/22 23:59 23:59 23:59 23:59 Intake Total 700 2600 Output Total 3400 Balance 700 -800 Meds/Results Medications: Active Medications Generic Name Dose Route Start Last Admin Trade Name Freq PRN Reason Stop Dose Admin Hydrocodone Bitart/Acetaminophen 1 tab 08/17/22 18:12 Hydrocodone/Acetaminophen (*Crx) 5-325 Mg Tablet PO Q4H PRN Mild Pain (1-3) Hydrocodone Bitart/Acetaminophen 1 tab 08/17/22 18:12 08/18/22 12:24 Hydrocodone/Acetaminophen (*Crx) 10-325 Mg Tablet PO 1 tab Q4H PRN Administration Moderate Pain (4-6) Al Hydrox/Mg Hydrox/Simethicone 20 ml 08/17/22 18:12 Mag Hydrox/Al Hydrox/Simeth 30 Ml Udc PO Q4H PRN Indigestion/Heartburn Bisacodyl 10 mg 08/17/22 18:12 Bisacodyl 10 Mg Suppository RECTAL DAILY PRN Constipation Cyclobenzaprine HCl 10 mg 08/17/22 18:12 Cyclobenzaprine Hcl 10 Mg Tablet PO TID PRN Muscle Spasms Dicyclomine HCl 10 mg 08/17/22 18:12 Dicyclomine Hcl 10 Mg Capsule PO TID PRN Gastrointestinal Spasms Or Boilers Inspector Diphenhydramine HCl 25 - 50 mg 08/17/22 21:47 08/17/22 22:05 Diphenhydramine Hcl Cap 25 Mg Capsule PO 25 mg Q6H PRN Administration Itching Docusate Sodium 100 mg 08/17/22 21:00 08/18/22 08:21 Docusate Sodium 100 Mg Capsule PO 100 mg Q12HR SANDI Administration Duloxetine HCl 30 mg 08/17/22 18:12 08/18/22 12:24 Duloxetine Hcl 30 Mg Capsule.Dr PO 30 mg TID SANDI Administration Gabapentin 600 mg 08/17/22 18:12 08/18/22 08:22 Gabapentin 300 Mg Capsule PO 600 mg BID SANDI Administration Gabapentin 400 mg 08/17/22 18:12 08/18/22 08:21 Gabapentin 400 Mg Capsule PO 400 mg BID SANDI Administration Gabapentin 400 mg 08/17/22 21:00 08/17/22 21:11 Gabapentin 400 Mg Capsule PO 400 mg HS SANDI Administration Hydrochlorothiazide 12.5 mg 08/17/22 21:00 08/17/22 21:12 Hydrochlorothiazide 12.5 Mg Capsule PO 12.5 mg HS SANDI Administration Hydromorphone HCl 0.5 mg 08/17/22 18:12 08/18/22 14:39 Hydromorphone Hcl Inj (*Crx) 1 Mg/Ml Syr IV PUSH 0.5 mg Q2H PRN Administration Pain Rated 7-10 Lisinopril 20 mg 12/01/22 21:00 08/17/22 21:12 Lisinopril 20 Mg Tablet PO 20 mg HS SANDI Administration Montelukast Sodium 10 mg 08/18/22 09:00 08/18/22 08:21 Isaac
[2022-08-18 19:23] VITALS: BP 126/62; PULSE 72; RESP 18; TEMP 36.5; O2SAT 95
[2022-08-18] MEDS: lisinopriL 20 MG TABLET PO (21:07)
[2022-08-18] MEDS: hydroCHLOROthiazide 12.5 MG CAPSULE PO (21:07)
[2022-08-19] MEDS: HYDROcodone/acetaminophen (*CRX) 10-325 MG TABLET 1 TAB PO ×3 (01:10→10:52)
[2022-08-19] MEDS: MAG HYDROX/AL HYDROX/SIMETH 30 ML UDC 20 ML PO (01:11)
[2022-08-19 04:43] VITALS: BP 113/88; PULSE 72; RESP 18; TEMP 36.8; O2SAT 94
[2022-08-19] MEDS: DOCUSATE SODIUM 100 MG CAPSULE PO (08:32)
[2022-08-19] MEDS: DULoxetine HCL 30 MG CAPSULE.DR PO ×2 (08:32→13:01)
[2022-08-19] MEDS: GABAPENTIN 400 MG CAPSULE PO (08:32)
[2022-08-19] MEDS: MULTIVITAMINS THERAPEUTIC TAB (*BKC) 1 TABLET PO (08:32)
[2022-08-19] MEDS: GABAPENTIN 300 MG CAPSULE 600 MG PO (08:33)
[2022-08-19] MEDS: MONTELUKAST SODIUM 10 MG TABLET PO (08:34)
[2022-08-19] MEDS: VITAMIN B COMPLEX CAPSULE 1 CAP PO (08:34)
[2022-08-19] MEDS: VITAMIN E 400 UNIT CAPSULE PO (08:34)
[2022-08-19] MEDS: PANTOPRAZOLE 40 MG TABLET PO (08:35)
== END 2022-08-19 13:40 | disposition home or self-care (01) ==
LOC: ANHSURGERY 08:15 → ANH3MED 18:25
PROVIDERS: Anesthesiology; Visit Provider Neurological Surgery
PROC: (CPT 63005; principal; 2022-08-17 11:00)
PROC: (CPT 63046; 2022-08-17 11:00)
DX: M54.14 Radiculopathy, thoracic region (principal); M54.50 Low back pain, unspecified; Z45.42 Encounter for adjustment and management of neurostimulator; I10 Essential (primary) hypertension; G47.33 Obstructive sleep apnea (adult) (pediatric); Z79.82 Long term (current) use of aspirin
CPT/HCPCS: 63046; 63048; 22842; 20936; 22614; 22610; 63688; 36415; 80048; 86850; 86900; 86901; 97161; 97165; 97535; 99199; A9270; C1713; J0330; J0690; J1100; J1170; J2250; J2370; J2405; J2704; J2710; J3010; J3370; J3480; J7120